=== PATIENT | male | born 1965 | race Caucasian/White ===

== ENCOUNTER → 2016-07-02 | Outpatient (CLI) | payer OTHER ==
[~2016-07-02] MED LIST: ENBREL50 MG/1 M1 SQ; FISH OIL 1,001000 M2 PO; HYDROCODONE-AP1 EAC6 PO; LEVOTHYROXIN0.075 MG PO; VITAMIN D1000 UNI1 PO
== END ==
LOC: CAT 10:46
DX: Z13.6 Encounter for screening for cardiovascular disorders (principal); E78.5 Hyperlipidemia, unspecified

== ENCOUNTER → 2016-09-16 | Outpatient (CLI) | payer OTHER | LOC: RAD 13:00 | DX: T67.0XXA Heatstroke and sunstroke, initial encounter (principal); X58.XXXA Exposure to other specified factors, initial encounter; Y93.89 Activity, other specified; Y92.89 Other specified places as the place of occurrence of the external cause; Y99.8 Other external cause status ==

== ENCOUNTER → 2018-05-18 | Outpatient (CLI) | payer OTHER | LOC: RAD 11:47 | DX: L40.0 Psoriasis vulgaris (principal); Z79.899 Other long term (current) drug therapy ==

== ENCOUNTER → 2019-03-11 | Outpatient (CLI) | payer OTHER | LOC: CAT 07:20 | DX: D73.4 Cyst of spleen (principal); K76.9 Liver disease, unspecified; K57.30 Diverticulosis of large intestine without perforation or abscess without bleeding; N42.89 Other specified disorders of prostate ==

== ENCOUNTER → 2021-08-13 | Outpatient (CLI) | payer OTHER | LOC: ULTRA 15:07 | PROVIDERS: ATTEND Contractor | DX: I73.9 Peripheral vascular disease, unspecified (principal) ==